=== PATIENT | male | born 1965 | race Caucasian/White ===

== ENCOUNTER 2024-08-08 12:32 | Emergency (ER) | payer OTHER, SELFPAY ==
[2024-08-08 12:38] VITALS: BP 172/96
[2024-08-08 12:41] VITALS: BMI 32.9
[2024-08-08 12:53] LABS: % Basophils 0.8 % (0-2); % Eosinophils 2.9 % (0-6); % Immature Granulocytes 0.2 % (0-0.5); % Lymphocytes 27.6 % (20.5-51.1); % Monocytes 9.4 % (1.7-9.3); % Neutrophils 59.1 % (42.2-75.2); Absolute Basophils 0.1 10^3/uL (0-0.2); Absolute Eosinophils 0.2 10^3/uL (0-0.7); Absolute Lymphocytes 1.8 10^3/uL (1.2-3.4); Absolute Monocytes 0.6 10^3/uL (0.1-0.6); Absolute Neutrophils 3.9 10^3/uL (1.4-6.5); Hematocrit 42.7 % (39.0-52.0); Hemoglobin 14.8 g/dL (13.0-18.0); Mean Corp Hgb Conc. 34.7 g/dL (33.0-37.0); Mean Corpuscular Volume 89.5 fL (80.0-94.0); Mean Platelet Volume 9.6 fL (7.4-10.4); Nucleated Red Blood Cells % 0 % (-); Platelet Count 238 10^3/uL (130-400); Red Blood Cell Count 4.77 10^6/uL (4.70-6.10); Red Cell Dist. Width 12.1 % (11.5-14.5); White Blood Cell Count 6.5 10^3/uL (4.8-10.8)
[2024-08-08 13:00] VITALS: BP 158/111
[2024-08-08 13:04] LABS: ALT (SGPT) 28 U/L (0-50); AST (SGOT) 21 U/L (17-59); Albumin 4.4 g/dl (3.5-5.0); Alkaline Phosphatase 69 U/L (38-126); Blood Urea Nitrogen 9 mg/dl (9-20); Calcium 9.3 mg/dl (8.4-10.2); Carbon Dioxide 26 mmol/L (22-30); Chloride 111 mmol/L (98-107); Estimated Creatinine Clearance > 125 ml/min; Glucose 121 mg/dl (70-99); Potassium 4.3 mmol/L (3.5-5.1); Sodium 143 mmol/L (135-145); Total Bilirubin 1.1 mg/dl (0.2-1.3); Total Protein 6.6 g/dl (6.3-8.2); eGFR > 60.00
[2024-08-08 13:15] LABS: Troponin I < 0.012 ng/ml
[2024-08-08 14:00] VITALS: BP 152/117
--- NOTE | 2024-08-08 14:52 | ED.GENMED ---
History of Present Illness
General
Chief Complaint: Blood Pressure Problem
Time Seen by Provider: 08/08/24 14:25
History of Present Illness
History of Present Illness:
51-year-old male history of hypertension presenting with elevated blood pressure. Patient states that today when he was sitting doing work he started feeling dizzy described as room spinning sensation. Patient states that his blood pressure was
noted to be high, 160s/120s, prompting ED arrival. Patient denies patient states the dizziness has since resolved. Patient denies numbness, weakness, tingling, headache, visual changes, chest pain or shortness of breath. Patient states that he
supposed to be on valsartan and diltiazem for hypertension but is not taking them for the past month.
Phy Exam
Physical Exam
Physical Exam:
General: Alert, no acute distress
Head: NCAT
Eyes: clear conjunctiva, PERRLA, EOMI
Neck: supple
Cardiac: regular rate and rhythm, no murmur
Lungs: clear to auscultation bilaterally. No wheezes, rales, or rhonchi. Speaking full unlabored sentences. No respiratory distress.
Abdomen: soft, nondistended nontender. No rebound or guarding.
MSK: no lower extremity edema bilaterally. No deformity
Skin: warm, dry
Neuro: Alert and oriented x3. Cranial nerves II through XII grossly intact no focal deficit. Normal finger-nose. 5-5 strength bilateral upper and lower extremities. Sensation intact throughout. No pronator drift
Course
Orders/Labs/Results
Orders:
Orders
08/08/24 12:39
Electrocardiogram (*1) Urgent
Reason for Study: Chest Pain
Cardiac Monitoring- Treatment ONCE
EKG- Treatment ONCE
IV Insert/Care/Rem.- Treatment PRN
O2 Therapy [RESP] Urgent
Titrate/Wean O2 to maintain O2 sat greater than (%): 90
Special Instructions: Maintain sats >/=90%
Pulse Ox/spot Check [RESP] Urgent
Quantity: 1
Special Instructions: ON ROOM AIR
08/08/24 12:41
Complete Blood Count/With Diff Urgent
Comprehensive Metabolic Panel Urgent
Troponin I Urgent
Abnormal Lab Results
08/08/24
12:41
Monocytes % 9.4 H %
(1.7-9.3)
Chloride 111 H mmol/L
(98-107)
Glucose 121 H mg/dl
(70-99)
08/08/24 12:41
08/08/24 12:41
Vital Signs
Initial and Last Documented VS:
Initial Vital Signs
Pulse Resp
88 18
08/08/24 12:37 08/08/24 12:37
Last Documented Vital Signs
Temp Pulse Resp BP Pulse Ox
97.7 F 78 11 152/117 97
08/08/24 12:47 08/08/24 14:45 08/08/24 14:00 08/08/24 14:00 08/08/24 14:45
MDM/Problems Addressed
Differential Diagnosis Includes:
Vertigo, electrolyte abnormality, DARIEL, arrhythmia, hypertensive emergency
MDM/Problems Addressed:
59-year-old male history of hypertension presenting with retention and dizziness starting today. Patient states that dizziness has since resolved. Patient is not taking valsartan and diltiazem for the past 30 days. On arrival, patient is
hypertensive to 172/96. Neurologically intact. Labs unremarkable. Troponin within normal limits. EKG unremarkable. Given patient is currently asymptomatic, stable for discharge with PCP follow-up. Advised to restart blood pressure medications
as prescribed
*EKG
Interpreted by ED Provider?: Yes (EKG shows sinus bradycardia at 50 bpm with AL 158 QTc 433 no acute ischemic changes)
*Critical Care Note
Total Time (30-74mins, 75-104mins- exclusive of procedures): Not Applicable
ED Attending Note
-
Portions of this chart may have been created with voice recognition software.� Occasional wrong word or��sound alike� substitutions may have occurred due to the inherent limitations of voice recognition software.
Discharge Plan
Departure
Patient Disposition: Home (Routine Discharge)
Date of Disposition: 08/08/24
Time of Disposition: 15:16
Patient with high blood pressure during this ER visit?: Yes
Discharge Problem:
Hypertension
Instructions: BLOOD PRESSURE
Referrals:
NONE,* [Family Provider, Internal Medicine]
Activity Restrictions/Additional Instructions:
Take blood pressure medications as prescribed
Follow-up with primary care doctor in 1 to 2 days
Return to emergency department for numbness, weakness, tingling, visual changes or new/worsening symptoms
Interventions
Interventions:
*Risk Screen - Suicide Last Done: 08/08/24 12:38
*General Assessment Last Done: 08/08/24 12:38
*Neglect/Abuse Screening Last Done: 08/08/24 12:38
*ED- Fall Risk Assessment Last Done: 08/08/24 12:38
*ED COVID-19 Vaccine History Last Done: 08/08/24 12:38
*Nursing Disposition Last Done: 08/08/24 15:27
ED- Cardiac Assessment Last Done: 08/08/24 12:42
ED- Neurological Assessment Last Done: 08/08/24 12:42
ED- Pulmonary Assessment Last Done: 08/08/24 12:42
Discharge Date and Time
Discharge Date/Time: 08/08/24 15:27
Print Language: HUNGARIAN
== END 2024-08-08 15:27 | disposition home or self-care (01) ==
LOC: EMR 12:32
PROVIDERS: EMERGENCY PHYSICIAN Emergency Medicine; OTHER PHYSICIAN Internal Medicine Cardiovascular Disease
DX: I10 Essential (primary) hypertension (principal)
CPT/HCPCS: 99284; 80053; 84484; 85025; 93005